=== PATIENT | male | born 1970 | race Caucasian/White ===

== ENCOUNTER → 2020-10-21 | Outpatient (CLI) | payer OTHER ==
--- NOTE | 2020-10-21 16:18 | RAD ---
Study: XR EXAM OF ANKLE_RIGHT 2 VIEWS Indication: Orthopedic condition of the right ankle. Disability determination. Comparison: None. Findings: Minimal arthrosis at the ankle with mild osteophytic ridging at the anterior tibial plafond. Joint sp belen height is maintained. No apparent talar dome abnormality noting the absence of an oblique view. N o acute fracture. Achilles insertion enthesophyte formation. Plantar calcaneal spur. Trace osteophytic ridging at the d orsum of the naviculocuneiform and presumably the first CMC joint. Impression: 1. No acute osseous abnormality. 2. Minimal ankle and midfoot arthrosis. 3. Plantar calcaneal spur and Achilles insertion enthesophyte formation. Electronically signed by: JAMAR DAMON MD (10/21/2020 4:15 PM) [facility]
--- NOTE | 2020-10-21 16:19 | RAD ---
Study: XR KNEE_LT 1-2 VIEWS Indication: Orthopedic condition of the left knee. Disability determination. Comparison: None. Findings: Medial larger than lateral joint line osteophytes. Moderate arthrosis at the patellofemoral compartme nt. Mild medial femorotibial compartment joint space narrowing. Quadriceps insertion and patellar william gin enthesophyte formation. Possible trace knee joint effusion. No acute fracture. Impression: Tricompartmental osteoporosis with a predilection for the patellofemoral and medial femorotibial comp artments, as above. Collectively arthrosis is considered moderate in severity. Electronically signed by: JAMAR DAMON MD (10/21/2020 4:17 PM) [facility]
== END ==
LOC: RAD 12:25
PROVIDERS: ATTEND Anesthesiology Pain Medicine
DX: M17.12 Unilateral primary osteoarthritis, left knee (principal); M25.762 Osteophyte, left knee; M77.31 Calcaneal spur, right foot
CPT/HCPCS: 73560; 73600

== ENCOUNTER → 2021-05-09 | Outpatient (CLI) | payer OTHER ==
--- NOTE | 2021-05-09 18:06 | RAD ---
XR LUMBAR SPINE 2-3V History: Low back pain Comparison: None. Technique: 2 views of the lumbar spine. Findings: There are 5 non-rib bearing lumbar vertebral segments. There is no evidence of fracture. No destructive osseous lesions. Alignment is normal. No significant facet disease. Mild disc space narrowing L4-L5 and L5-S1. Sacroiliac joints are unremarkable. Minimal calcification of the aorta. Chain sutures in the left upper quadrant. Gas-filled mildly promi nent left upper quadrant small bowel loops. IMPRESSION: 1. Mild degenerative changes the lower lumbar spine without acute osseous abnormality. Electronically signed by: Chirag Salomon MD (05/09/2021 6:03 PM) [id number]
== END ==
LOC: RAD 10:13
PROVIDERS: ATTEND Anesthesiology Pain Medicine
DX: Z02.71 Encounter for disability determination (principal); M47.816 Spondylosis without myelopathy or radiculopathy, lumbar region; M48.07 Spinal stenosis, lumbosacral region; I70.0 Atherosclerosis of aorta
CPT/HCPCS: 72100